=== PATIENT | female | born 1960 | race African-American/Black ===

== ENCOUNTER 2016-07-20 06:59 | Day surgery (SDC) | payer OTHER ==
[2016-07-14 11:04] VITALS: BMI 50.8
[2016-07-20] MEDS ORDERED: PROPOFOL 20 ML ONE ×2 (07:26)
[2016-07-20 09:15] VITALS: TEMP 99
[2016-07-21 10:51] VITALS: BP 134/80; PULSE 72
== END 2016-07-20 09:36 | disposition home or self-care (01) ==
LOC: FASU-ENDO 06:59
PROVIDERS: ATTEND Internal Medicine Gastroenterology
PROC: 0DJD8ZZ Inspection of Lower Intestinal Tract, Via Natural or Artificial Opening Endoscopic (ICD-10-PCS; principal; 2016-07-20 08:38)
DX: Z12.11 Encounter for screening for malignant neoplasm of colon (principal); K64.8 Other hemorrhoids

== ENCOUNTER 2018-10-12 14:44 | Emergency (ER) | payer OTHER ==
[2018-10-12 14:50] VITALS: BMI 46.7
[2018-10-12] MEDS ORDERED: ACETAMINOPHEN 325 MG TABLET (FP) PO ONE (14:53)
--- NOTE | 2018-10-12 14:58 | PDOC ---
History of Present Illness - General History Source: Patient - History of Present Illness Timing/Duration: reports: other <CarmeloToby - Last Filed: 10/12/18 16:23> <Henna Lopes - Last Filed: 10/12/18 18:47> - General Chief Complaint: Cold Symptoms Stated Complaint: SOB,COUGHING UP BLOOD Time Seen by Provider: 10/12/18 14:53 Past History - Past Medical History Anemia: Yes Asthma: Yes Cancer: No Cardiac Disorders: No CVA: No COPD: No CHF: No Dementia: No Diabetes: No GI Disorders: No Disorders: No HTN: Yes Hypercholesterolemia: No Liver Disease: No Seizures: No Thyroid Disease: No - Surgical History Abdominal Surgery: Yes Appendectomy: No Cardiac Surgery: No Cholecystectomy: No Lung Surgery: No Neurologic Surgery: No Orthopedic Surgery: No - Suicide/Smoking/Psychosocial Hx Smoking History: Former smoker Have you smoked in the past 12 months: No Number of Cigarettes Smoked Daily: 0 If you are a former smoker, when did you quit?: 2011 Information on smoking cessation initiated: No Hx Alcohol Use: No Drug/Substance Use Hx: No Substance Use Type: None Hx Substance Use Treatment: No <Toby Rhodes - Last Filed: 10/12/18 16:23> <Henna Lopes - Last Filed: 10/12/18 18:47> - Past Medical History Allergies/Adverse Reactions: Allergies Allergy/AdvReac Type Severity Reaction Status Date / Time No Known Allergies Allergy Verified 07/20/16 06:32 Home Medications: Ambulatory Orders Albuterol Sulfate Inhaler - [Ventolin HFA 8GM] 2 inh IH QID PRN 10/14/11 Amlodipine Besylate [Norvasc] 10 mg PO DAILY 10/14/11 Ferrous Sulfate 250 mg PO BID 10/14/11 Fluticasone/Salmeterol [Advair 250-50 Diskus] 1 each IH DAILY 10/14/11 Amoxicillin - [Amoxicillin 875mg Tablet -] 875 mg PO BID #14 tab 10/12/18 Methylprednisolone [Medrol Dose Kevan] 4 mg PO ASDIR #21 tablet 10/12/18 Review of Systems - Review of Systems Constitutional: Yes: Fever, Malaise Respiratory: Yes: Cough. 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 negative: Scleral Icterus (R), Scleral Icterus (L), Tonsillar Exudate Neck: positive: Supple. negative: Lymphadenopathy (R), Lymphadenopathy (L) Respiratory/Chest: positive: Lungs Clear, Normal Breath Sounds. negative: Respiratory Distress Cardiovascular: positive: S1, S2, Tachycardia Integumentary: positive: Dry, Warm Neurologic: positive: Fully Oriented, Alert, Normal Mood/Affect <SwissToby - Last Filed: 10/12/18 16:23> - Vital Signs Last Vital Signs Temp Pulse Resp BP Pulse Ox 100.7 F H 100 H 16 145/94 98 10/12/18 16:19 10/12/18 16:17 10/12/18 15:12 10/12/18 16:17 10/12/18 16:24 <Henna Lopes - Last Filed: 10/12/18 18:47> ED Treatment Course - Medications Given in the ED: ED Medications Discontinued Medications Generic Name Dose Route Start Last Admin Trade Name Freq PRN Reason Stop Dose Admin Acetaminophen 650 mg 10/12/18 14:53 10/12/18 15:02 Tylenol - PO 10/12/18 14:54 650 mg ONCE ONE Administration Amlodipine Besylate 10 mg 10/12/18 15:09 10/12/18 15:19 Norvasc - PO 10/12/18 15:10 10 mg ONCE ONE Administration Dexamethasone Sodium Phosphate 10 mg 10/12/18 15:01 10/12/18 15:13 Decadron Injection - IM 10/12/18 15:02 10 mg ONCE ONE Administration Ketorolac Tromethamine 60 mg 10/12/18 15:01 10/12/18 15:13 Toradol Injection - IM 10/12/18 15:02 60 mg ONCE ONE Administration <Henna Lopes - Last Filed: 10/12/18 18:47> Medical Decision Making - Medical Decision Making 10/12/18 14:57 58 yo F, morbid obesity, HTN, LETTY, here with mostly non-productive cough w/ ? trace BRB in sputum now, with pleuritic CP, severe throat pain, body aches, malaise and low grade fever x 3 days. No sob. No sick contacts or recent travel. 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 Flu and CXR negative. Pt reports feeling sig better w/ improvement in vitals. Will dc w/ abx and supportive tx <Toby Rhodes - Last Filed: 10/12/18 16:23> *DC/Admit/Observation/Transfer <Toby Rhodes - Last Filed: 10/12/18 16:23> - Attestations Physician Attestion: I reviewed the case with the mid-level practitioner and agree with the mid- level practitioner's assessment, diagnosis and disposition. <Henna Lopes - Last Filed: 10/12/18 18:47> Diagnosis at time of Disposition: Strep pharyngitis - Discharge Dispostion Disposition: HOME Condition at time of disposition: Improved - Prescriptions Prescriptions: Amoxicillin - [Amoxicillin 875mg Tablet -] 875 mg PO BID #14 tab Methylprednisolone [Medrol Dose Kevan] 4 mg PO ASDIR #21 tablet - Referrals Referrals: Glenys Mccollum MD [Primary Care Provider] - - Patient Instructions Printed Discharge Instructions: DI for Strep Throat Additional Instructions: Your test reveals that you have strep throat Take antibiotics and steroids as directed, rest, drink fluids and take motrin as needed for pain - Post Discharge Activity Forms/Work/School Notes: Back to Work
[2018-10-12] MEDS ORDERED: ACETAMINOPHEN 325 MG TABLET (FP) ONE ×2 (15:00→15:03)
[2018-10-12] MEDS ORDERED: DEXAMETHASONE SOD PHOSPHATE 10 MG/1 ML VIAL IM ONE (15:01)
[2018-10-12] MEDS ORDERED: KETOROLAC TROMETHAMINE 60 MG/2 ML VIAL IM ONE (15:01)
[2018-10-12] MEDS ORDERED: KETOROLAC TROMETHAMINE 60 MG/2 ML VIAL ONE (15:06)
[2018-10-12] MEDS ORDERED: DEXAMETHASONE SOD PHOSPHATE 10 MG/1 ML VIAL ONE (15:06)
[2018-10-12] MEDS ORDERED: amLODIPine BESYLATE 10 MG TABLET (FP) PO ONE (15:09)
[2018-10-12] MEDS ORDERED: amLODIPine BESYLATE 5 MG TABLET (FP) ONE (15:16)
[2018-10-12 16:54] VITALS: BP 145/94; PULSE 100; TEMP 100.7
== END 2018-10-12 16:30 | disposition home or self-care (01) ==
LOC: JER 14:44
PROC: 3E0233Z Introduction of Anti-inflammatory into Muscle, Percutaneous Approach (ICD-10-PCS; principal; 2018-10-12)
PROC: 3E0233Z Introduction of Anti-inflammatory into Muscle, Percutaneous Approach (ICD-10-PCS; 2018-10-12)
DX: J02.0 Streptococcal pharyngitis (principal); B95.0 Streptococcus, group A, as the cause of diseases classified elsewhere; I10 Essential (primary) hypertension; D64.9 Anemia, unspecified; J45.909 Unspecified asthma, uncomplicated
CPT/HCPCS: 71046-TC-FY; 87804; 87880; 96372; 99284-25; J1100

== ENCOUNTER 2020-12-04 20:59 | Emergency (ER) | payer OTHER ==
[2020-12-04 21:08] VITALS: BP 117/88; PULSE 86; TEMP 98.1; BMI 46.9
[2020-12-04] MEDS ORDERED: SODIUM CHLORIDE 1,000 ML IV ONE (21:14)
[2020-12-04] MEDS ORDERED: INSULIN REGULAR HUMAN 100 UNITS/ML *VIAL IVPUSH ONE ×2 (21:15→22:56)
[2020-12-04 21:36] LABS: BASO % 3.2 % (0-2.0); EOS % 0.6 % (0-4.5); HEMATOCRIT 41.5 % (32.4-45.2); HEMOGLOBIN 13.5 GM/dl (10.7-15.3); LYMPH % 46.2 % (8-40); MCH 27.5 pg (25.7-33.7); MCHC 32.5 g/dl (32.0-36.0); MEAN CELL VOLUME 84.6 fl (80-96); MEAN PLT VOLUME 9.6 fl (7.5-11.1); MONO % 5.4 % (3.8-10.2); NEUT % 44.6 % (42.8-82.8); PLATELET COUNT 206 K/MM3 (134-434); RBC 4.91 M/mm3 (3.60-5.2); RDW 12.4 % (11.6-15.6); WHITE BLOOD COUNT 4.8 K/mm3 (4.0-10.8)
[2020-12-04] MEDS ORDERED: INSULIN REGULAR HUMAN 100 UNITS/ML *VIAL ONE ×2 (21:48→22:56)
[2020-12-04 21:53] LABS: ALBUMIN 4.1 g/dl (3.4-5.0); BILIRUBIN,TOTAL 0.7 mg/dl (0.2-1); CALCIUM 9.9 mg/dl (8.5-10); CREATININE 0.7 mg/dl (0.55-1.3); TOT PROT 7.9 g/dl (6.4-8.2)
== END 2020-12-04 23:54 | disposition home or self-care (01) ==
LOC: FER 20:59
PROC: 3E013VG Introduction of Insulin into Subcutaneous Tissue, Percutaneous Approach (ICD-10-PCS; principal; 2020-12-04)
PROC: 3E013VG Introduction of Insulin into Subcutaneous Tissue, Percutaneous Approach (ICD-10-PCS; 2020-12-04)
PROC: 3E0337Z Introduction of Electrolytic and Water Balance Substance into Peripheral Vein, Percutaneous Approach (ICD-10-PCS; 2020-12-04)
DX: E11.65 Type 2 diabetes mellitus with hyperglycemia (principal)
CPT/HCPCS: 36415; 80053; 81003; 82962; 85025; 93005; 96361; 96374; 96375; 99284-25